=== PATIENT | female | born 1985 | race Caucasian/White ===

== ENCOUNTER 2017-05-11 03:55 | Inpatient (IN) | payer OTHER ==
[~2017-05-11] VITALS: Ht 167.6 cm; Wt 77.0 kg
[2017-05-11] VITALS (20 sets, daily range): BP systolic 91–133; BP diastolic 54–84
[2017-05-11] MEDS ORDERED: PRENATAL TABLE1 EAC3 PO (04:50)
[2017-05-11 05:49] LABS: BASOPHIL (%) 0.2 % (0-1); EOSINOPHIL (%) 0.1 % (0-5); HEMATOCRIT 35.3 % (36.0-46.0); HEMOGLOBIN 11.4 G/DL (11.9-15.5); IMMATURE GRANULOCYTE (%) 0.2 % (0.0-0.7); LYMPHOCYTE (%) 12.8 % (15-42); LYMPHOCYTE COUNT 1.2 K/uL (1.0-2.8); MCH 26.3 PG (29.0-34.0); MCHC 32.3 G/DL (30.0-36.0); MCV 81.5 FL (83-99); MONOCYTE (%) 8.2 % (3-12); MONOCYTE COUNT 0.8 K/uL (0-0.8); NEUTROPHIL (%) 78.5 % (45-76); NEUTROPHIL COUNT 7.3 K/uL (1.8-6.4); PLATELET COUNT 246 K/uL (156-360); RBC DIS.WIDTH-CV 15.3 % (11.8-14.6); RBC DIS.WIDTH-SD 45.5 % (39-53); RED BLOOD COUNT 4.33 M/uL (3.80-5.20); WHITE BLOOD COUNT 9.3 K/uL (4.1-10.2)
[2017-05-11] MEDS ORDERED: IBUPROFEN800 MG PO (08:00)
[2017-05-12 06:50] VITALS: BP 108/66
[2017-05-12 14:30] VITALS: BP 110/60
[2017-05-12 23:05] VITALS: BP 120/65
[2017-05-13 07:10] VITALS: BP 119/71
== END 2017-05-13 10:45 | disposition home or self-care (01) | DRG 775 ==
LOC: LDRP-OP 03:55 → 2WEST 03:56 → LDRP-OP 06-08 07:19
PROVIDERS: Midwife
DX: O77.0 Labor and delivery complicated by meconium in amniotic fluid (principal); Z3A.40 40 weeks gestation of pregnancy; Z37.0 Single live birth
CPT/HCPCS: 85025; C1755; J3010; J7120